=== PATIENT | female | born 1945 | race Caucasian/White ===

== ENCOUNTER 2017-05-22 17:42 | Inpatient (IN) | payer OTHER ==
[~2017-05-22] VITALS: Ht 152.4 cm; Wt 65.0 kg
[~2017-05-22 17:42] MED LIST: ASPIRIN EC325 M1 PO; ATIVAN0.5 M1 PO; ECO81 PO; LIPITOR80 MG PO; SOMA350 MG PO; VICODIN1 TA1 PO
[2017-05-22 18:57] LABS: BASOPHIL % 0.1 % (0-2)
[2017-05-22 18:58] LABS: RED CELL DISTRIBUTION WIDTH 15.9 % (11.5-14.5)
[2017-05-22 19:00] LABS: PLATELET COUNT 506 x10^3mcL (130-400)
[2017-05-22 19:04] LABS: CALCIUM 9.1 mg/dL (8.5-10.1); CARBON DIOXIDE 21.8 mmol/L (21-32); CHLORIDE SERUM 102 mmol/L (98-107); CREATININE SERUM 0.9 mg/dL (0.6-1.0); GLUCOSE SERUM 99 mg/dL (74-106); POTASSIUM SERUM 4.3 mmol/L (3.5-5.1); SODIUM SERUM 139 mmol/L (136-145)
[2017-05-22 19:08] LABS: ALBUMIN 3.7 g/dL (3.4-5.0); ALKALINE PHOSPHATASE 110 U/L (46-116); ALT/SGPT 35 U/L (14-59); AST/SGOT 31 U/L (15-37); CHOLESTEROL 160 mg/dL (<200); TOTAL PROTEIN, SERUM 7.4 g/dL (6.4-8.2)
[2017-05-22 19:22] LABS: AMPHETAMINE QUAL UR NONE DETECTED (NEG <=1000)
[2017-05-22 21:09] LABS: UA SPECIFIC GRAVITY >=1.030 (1.005-1.035); microscopic required? YES; urine erythrocyte NEGATIVE (NEGATIVE)
[2017-05-22 21:20] LABS: CHOLESTEROL/HDL RATIO 3.6; MAGNESIUM 1.8 mg/dL (1.8-2.4); PHOSPHOROUS 3.1 mg/dL (2.5-4.9)
[2017-05-22 21:25] LABS: T3 TOTAL 0.93 ng/mL
[2017-05-22 21:30] LABS: FREE T4 1.07 ng/dL (0.76-1.46); FREE THYROXINE INDEX 2.4 ug/dL (1.4-4.5); T4(THYROXINE) 7.2 ug/dL (4.7-13.3)
[2017-05-23 08:31] LABS: BASOPHIL % 0.2 % (0-2); PLATELET COUNT 345 x10^3mcL (130-400)
[2017-05-23 08:34] LABS: RED CELL DISTRIBUTION WIDTH 15.7 % (11.5-14.5)
[2017-05-23 08:41] LABS: CALCIUM 8.3 mg/dL (8.5-10.1); CARBON DIOXIDE 20.1 mmol/L (21-32); CHLORIDE SERUM 107 mmol/L (98-107); CREATININE SERUM 0.7 mg/dL (0.6-1.0); GLUCOSE SERUM 91 mg/dL (74-106); MAGNESIUM 1.6 mg/dL (1.8-2.4); PHOSPHOROUS 2.7 mg/dL (2.5-4.9); POTASSIUM SERUM 3.4 mmol/L (3.5-5.1); SODIUM SERUM 140 mmol/L (136-145)
[2017-05-23 10:49] VITALS: BP 142/65
[2017-05-23 13:58] VITALS: BP 124/63
[2017-05-23 14:05] VITALS: BP 108/63; BP 123/60
[2017-05-23 18:36] VITALS: BP 131/58
[2017-05-23 22:11] VITALS: BP 122/76
[2017-05-24 04:59] VITALS: BP 128/56
[2017-05-24 06:41] LABS: BASOPHIL % 0.2 % (0-2); PLATELET COUNT 312 x10^3mcL (130-400)
[2017-05-24 06:59] LABS: CALCIUM 7.8 mg/dL (8.5-10.1); CARBON DIOXIDE 24.5 mmol/L (21-32); CHLORIDE SERUM 107 mmol/L (98-107); CREATININE SERUM 0.7 mg/dL (0.6-1.0); GLUCOSE SERUM 90 mg/dL (74-106); PHOSPHOROUS 3.3 mg/dL (2.5-4.9); POTASSIUM SERUM 3.4 mmol/L (3.5-5.1); SODIUM SERUM 141 mmol/L (136-145)
[2017-05-24 07:05] LABS: RED CELL DISTRIBUTION WIDTH 15.9 % (11.5-14.5)
[2017-05-24 10:33] VITALS: BP 117/72
[2017-05-24 13:02] VITALS: BP 146/85
[2017-05-24 18:07] VITALS: BP 145/75
[2017-05-24 21:22] VITALS: Ht 152.4 cm; Wt 65.0 kg
[2017-05-24 21:48] VITALS: BP 129/89
[2017-05-25] MEDS ORDERED: MECLIZINE HYDRO25 M1 PO (05:23)
[2017-05-25] MEDS ORDERED: ACIPHEX20 MG PO (05:24)
[2017-05-25] MEDS ORDERED: REQUIP0.5 MG PO (05:25)
[2017-05-25] MEDS ORDERED: SCOP TD (05:25)
[2017-05-25 05:56] VITALS: BP 121/86
[2017-05-25 07:34] LABS: BASOPHIL % 0.3 % (0-2); PLATELET COUNT 332 x10^3mcL (130-400)
[2017-05-25 07:41] LABS: CALCIUM 8.4 mg/dL (8.5-10.1); CARBON DIOXIDE 25.1 mmol/L (21-32); CHLORIDE SERUM 110 mmol/L (98-107); CREATININE SERUM 0.6 mg/dL (0.6-1.0); GLUCOSE SERUM 103 mg/dL (74-106); MAGNESIUM 1.7 mg/dL (1.8-2.4); PHOSPHOROUS 2.7 mg/dL (2.5-4.9); POTASSIUM SERUM 3.5 mmol/L (3.5-5.1); RED CELL DISTRIBUTION WIDTH 15.8 % (11.5-14.5); SODIUM SERUM 144 mmol/L (136-145)
[2017-05-25 11:38] VITALS: BP 133/68
[2017-05-25] MEDS ORDERED: LIPITOR80 MG PO (12:57)
[2017-05-25] MEDS ORDERED: LOP50 PO (12:58)
[2017-05-25] MEDS ORDERED: CAR60 PO (12:58)
[2017-05-25] MEDS ORDERED: BG FS (12:59)
[2017-05-25] MEDS ORDERED: GLU500 PO (13:00)
[2017-05-25] MEDS ORDERED: COL100 PO (13:00)
[2017-05-25] MEDS ORDERED: ACCU-CHEK1 EACH MC (13:02)
[2017-05-25] MEDS ORDERED: LEVAQUIN750 MG PO (13:17)
[2017-05-25 13:48] VITALS: BP 133/68
== END 2017-05-25 14:35 | disposition home or self-care (01) | DRG 177 ==
LOC: ED 17:42 → DU 20:06
PROVIDERS: Family Medicine; Specialist; Student in an Organized Health Care Education/Training Program
DX: J69.0 Pneumonitis due to inhalation of food and vomit (principal); G92 Toxic encephalopathy; T40.2X1A Poisoning by other opioids, accidental (unintentional), initial encounter; T42.8X1A Poisoning by antiparkinsonism drugs and other central muscle-tone depressants, accidental (unintentional), initial encounter; T42.4X1A Poisoning by benzodiazepines, accidental (unintentional), initial encounter; F19.10 Other psychoactive substance abuse, uncomplicated; E86.0 Dehydration; E87.6 Hypokalemia; E11.65 Type 2 diabetes mellitus with hyperglycemia; E11.51 Type 2 diabetes mellitus with diabetic peripheral angiopathy without gangrene; I48.91 Unspecified atrial fibrillation; M54.5 Low back pain; G89.29 Other chronic pain; Z68.29 Body mass index [BMI] 29.0-29.9, adult; Z91.14 Patient's other noncompliance with medication regimen; Z79.82 Long term (current) use of aspirin; Z79.891 Long term (current) use of opiate analgesic; Z87.891 Personal history of nicotine dependence; Y92.008 Other place in unspecified non-institutional (private) residence as the place of occurrence of the external cause
CPT/HCPCS: 36600; 82962; 83880; 84439; 87804; G0480; J0515; J0696; J1170; J1630; J1956; J2060; J2250; J2405; J3475; J3490; J7030; J7040; Q0092

== ENCOUNTER 2017-07-04 19:02 | Inpatient (IN) | payer OTHER ==
[~2017-07-04] VITALS: Ht 152.4 cm; Wt 63.2 kg
[~2017-07-04 19:02] MED LIST changes: +ACCU-CHEK1 EACH MC; +ACIPHEX20 MG PO; +BG FS; +CAR60 PO; +COL100 PO; +GLU500 PO; +LEVAQUIN750 MG PO; +LOP50 PO; +MECLIZINE HYDRO25 M1 PO; +REQUIP0.5 MG PO; +SCOP TD
[2017-07-04 19:08] VITALS: Ht 152.4 cm; Wt 63.2 kg
[2017-07-04 20:30] LABS: RED CELL DISTRIBUTION WIDTH 14.4 % (11.5-14.5)
[2017-07-04 20:36] LABS: CALCIUM 8.5 mg/dL (8.5-10.1); CARBON DIOXIDE 20.2 mmol/L (21-32); CHLORIDE SERUM 97 mmol/L (98-107); CREATININE SERUM 1.1 mg/dL (0.6-1.0); GLUCOSE SERUM 82 mg/dL (74-106); POTASSIUM SERUM 3.9 mmol/L (3.5-5.1); SODIUM SERUM 134 mmol/L (136-145)
[2017-07-04 20:49] LABS: ALBUMIN 3.9 g/dL (3.4-5.0); ALKALINE PHOSPHATASE 88 U/L (46-116); ALT/SGPT 38 U/L (14-59); AST/SGOT 41 U/L (15-37); BILIRUBIN TOTAL 0.3 mg/dL (0.20-1.00); FREE T4 0.94 ng/dL (0.76-1.46); TOTAL PROTEIN, SERUM 7.2 g/dL (6.4-8.2)
[2017-07-04 20:52] LABS: PLATELET COUNT 433 x10^3mcL (130-400)
[2017-07-04 20:57] LABS: BAND NEUTROPHIL 2 % (0-10); BASOPHIL 0 % (0-2); MONOCYTE 6 % (0-7); SEGMENTED NEUTROPHILS 82 % (37-75); rbc morphology (normal/abnorm) NORMAL (NORMAL)
[2017-07-04 20:59] LABS: OSMOLALITY SERUM 278 mOsm/kg (278-298)
[2017-07-04 22:34] LABS: microscopic required? NO
[2017-07-04 22:42] LABS: UA SPECIFIC GRAVITY 1.025 (1.005-1.035); urine erythrocyte NEGATIVE (NEGATIVE)
[2017-07-04 22:50] LABS: AMPHETAMINE QUAL UR NONE DETECTED (NEG <=1000)
[2017-07-04] MEDS ORDERED: ATIVAN0.5 M1 PO (22:57)
[2017-07-04] MEDS ORDERED: APAP/HYDROCODON1 T11 PO (22:57)
[2017-07-04] MEDS ORDERED: REQUIP0.5 MG PO (22:58)
[2017-07-04] MEDS ORDERED: CENTRUM MULTIG80 MCG PO (22:59)
[2017-07-04] MEDS ORDERED: C COMPLEX500 MG PO (22:59)
[2017-07-04] MEDS ORDERED: BIOTENE MOIST44.3 ML (23:00)
[2017-07-04] MEDS ORDERED: COENZYME Q10100 MG PO (23:00)
[2017-07-04] MEDS ORDERED: DIPHENHYDRAMINE50 MG PO (23:00)
[2017-07-05] VITALS (7 sets, daily range): BP systolic 90–142; BP diastolic 35–121
[2017-07-05 00:43] LABS: MAGNESIUM 2.1 mg/dL (1.8-2.4); PHOSPHOROUS 5.1 mg/dL (2.5-4.9)
[2017-07-05 00:45] LABS: CHOLESTEROL/HDL RATIO 2.6
[2017-07-05 01:31] LABS: CALCIUM 9.1 mg/dL (8.5-10.1); CARBON DIOXIDE 16.1 mmol/L (21-32); CHLORIDE SERUM 96 mmol/L (98-107); GLUCOSE SERUM 70 mg/dL (74-106); SODIUM SERUM 131 mmol/L (136-145)
[2017-07-05 05:37] LABS: BASOPHIL % 0.3 % (0-2)
[2017-07-05 05:41] LABS: PLATELET COUNT 404 x10^3mcL (130-400)
[2017-07-05 06:00] LABS: CARBON DIOXIDE 32.1 mmol/L (21-32); CHLORIDE SERUM 99 mmol/L (98-107); GLUCOSE SERUM 84 mg/dL (74-106); MAGNESIUM 2.2 mg/dL (1.8-2.4); PHOSPHOROUS 3.3 mg/dL (2.5-4.9); POTASSIUM SERUM 3.6 mmol/L (3.5-5.1); SODIUM SERUM 142 mmol/L (136-145)
[2017-07-06 01:30] VITALS: BP 109/55
[2017-07-06 05:49] VITALS: BP 108/55
[2017-07-06 10:22] VITALS: BP 107/53
[2017-07-06 11:01] LABS: BASOPHIL % 0.4 % (0-2); PLATELET COUNT 288 x10^3mcL (130-400); RED CELL DISTRIBUTION WIDTH 14.1 % (11.5-14.5)
[2017-07-06 11:17] LABS: CALCIUM 7.8 mg/dL (8.5-10.1); CARBON DIOXIDE 27.1 mmol/L (21-32); CHLORIDE SERUM 100 mmol/L (98-107); CREATININE SERUM 0.8 mg/dL (0.6-1.0); GLUCOSE SERUM 116 mg/dL (74-106); POTASSIUM SERUM 3.5 mmol/L (3.5-5.1); SODIUM SERUM 136 mmol/L (136-145)
[2017-07-06 15:22] VITALS: BP 124/87
[2017-07-06 18:16] VITALS: BP 119/64
[2017-07-06 21:55] VITALS: BP 140/64
[2017-07-07 06:06] VITALS: BP 124/63
[2017-07-07 06:20] LABS: BASOPHIL % 0.5 % (0-2); PLATELET COUNT 288 x10^3mcL (130-400)
[2017-07-07 06:39] LABS: RED CELL DISTRIBUTION WIDTH 14.7 % (11.5-14.5)
[2017-07-07 06:46] LABS: CALCIUM 8.4 mg/dL (8.5-10.1); CARBON DIOXIDE 26.8 mmol/L (21-32); CHLORIDE SERUM 104 mmol/L (98-107); CREATININE SERUM 0.6 mg/dL (0.6-1.0); GLUCOSE SERUM 120 mg/dL (74-106); POTASSIUM SERUM 4.2 mmol/L (3.5-5.1); SODIUM SERUM 138 mmol/L (136-145)
[2017-07-07 13:10] VITALS: BP 139/68
== END 2017-07-07 14:09 | disposition left against medical advice (07) | DRG 177 ==
LOC: ED 19:02 → IC 07-05 00:47 → DU 07-05 00:47 → IC 07-05 02:00 → DU 07-05 18:08
PROVIDERS: Emergency Medicine; Family Medicine
DX: J69.0 Pneumonitis due to inhalation of food and vomit (principal); G92 Toxic encephalopathy; N17.0 Acute kidney failure with tubular necrosis; T42.8X5A Adverse effect of antiparkinsonism drugs and other central muscle-tone depressants, initial encounter; E86.0 Dehydration; I10 Essential (primary) hypertension; E11.51 Type 2 diabetes mellitus with diabetic peripheral angiopathy without gangrene; E83.39 Other disorders of phosphorus metabolism; G25.81 Restless legs syndrome; K21.9 Gastro-esophageal reflux disease without esophagitis; M54.9 Dorsalgia, unspecified; G89.29 Other chronic pain; E78.00 Pure hypercholesterolemia, unspecified; E78.5 Hyperlipidemia, unspecified; Z68.25 Body mass index [BMI] 25.0-25.9, adult; Z88.5 Allergy status to narcotic agent; Z88.0 Allergy status to penicillin; Z88.7 Allergy status to serum and vaccine; Z88.8 Allergy status to other drugs, medicaments and biological substances; Z86.73 Personal history of transient ischemic attack (TIA), and cerebral infarction without residual deficits; Z90.710 Acquired absence of both cervix and uterus; Z79.84 Long term (current) use of oral hypoglycemic drugs; Z79.82 Long term (current) use of aspirin; Z87.891 Personal history of nicotine dependence; Y92.009 Unspecified place in unspecified non-institutional (private) residence as the place of occurrence of the external cause
CPT/HCPCS: 36600; 82962; 83880; 84439; 94150; 97110-GP; 97116-GP; 97530-GP; G0480; J0696; J1200; J1956; J2060; J3370; J3480; J3486; J3490; J7030; J7050; J7060; Q0092; Q0163